=== PATIENT | female | born 1965 | race Caucasian/White ===

== ENCOUNTER 2016-08-30 18:41 | Emergency (ER) | payer BC ==
[2016-08-30 21:23] VITALS: BP 137/90
[2016-08-30] MEDS ORDERED: Amoxicillin/Clavulanate TAB* 875 MG PO ONE (21:36)
--- NOTE | 2016-08-30 21:37 | UC ---
Throat Pain/Nasal David HPI - HPI Summary HPI Summary: patient has had 2 weeks of sinus and cough, the past few days increas right sided sinus pressure and swelling under her eye, starting to make her teeth hurt. - History of Current Complaint Chief Complaint: UCGeneralIllness Stated Complaint: SINUS CONGESTION Time Seen by Provider: 08/30/16 21:20 Hx Obtained From: Patient Hx Last Menstrual Period: May 2016 ?: No Onset/Duration: Gradual Onset, Lasting Weeks Severity: Severe Pain Intensity: 8 Pain Scale Used: 0-10 Numeric Cough: Nonproductive Associated Signs & Symptoms: Positive: Sinus Discomfort, Nasal Discharge - Epiglottits Risk Factors Epiglottis Risk Factors: Negative - Allergies/Home Medications Allergies/Adverse Reactions: Allergies Allergy/AdvReac Type Severity Reaction Status Date / Time No Known Allergies Allergy Verified 08/30/16 21:02 Home Medications: Home Medications Amphetamine-Dextroamphetamine [Adderall 30 mg-] 1 tab PO DAILY 08/30/16 [ History Confirmed 08/30/16] Dextromethorphan-Phenylephrine [Vicks Dayquil Cold & Flu] 1 cap PO Q6H PRN 08/30 [History Confirmed 08/30/16] PMH/Surg Hx/FS Hx/Imm Hx Previously Healthy: Yes Endocrine History Of: Denies: Diabetes Cardiovascular History Of: Denies: Cardiac Disorders Respiratory History Of: Denies: Asthma - Surgical History Surgical History: Yes Surgery Procedure, Year, and Place: x2. right leg surgery 2007 - Family History Known Family History: Negative: Hypertension - Social History Alcohol Use: Occasionally Substance Use Type: None Smoking Status (MU): Never Smoked Tobacco - Immunization History Most Recent Tetanus Shot: DTAP 12/11/14 Review of Systems Constitutional: Fatigue Skin: Negative ENT: Ear Ache, Nasal Discharge Respiratory: Cough Cardiovascular: Negative Gastrointestinal: Negative Genitourinary: Negative Motor: Negative Neurovascular: Negative Musculoskeletal: Negative Neurological: Headache Psychological: Negative All Other Systems Reviewed And Are Negative: Yes Physical Exam Triage Information Reviewed: Yes Appearance: Well-Nourished, Ill-Appearing, Pain Distress Vital Signs: Initial Vital Signs Temp 99.0 F 08/30/16 21:06 Pulse 94 08/30/16 21:06 Resp 16 08/30/16 21:06 BP 137/90 08/30/16 21:06 Pulse Ox 100 08/30/16 21:06 Vital Signs Reviewed: Yes Eye Exam: Normal Eyes: Positive: Other: - lower right eyelid swollen ENT Exam: Normal ENT: Positive: Normal ENT inspection, Pharynx normal, Nasal congestion, Nasal drainage, TMs normal Dental Exam: Normal Neck exam: Normal Neck: Positive: Supple, Nontender, Enlarged Nodes @ - behind right ear Respiratory Exam: Normal Respiratory: Positive: Chest non-tender, Normal breath sounds, Wheezing, Inspiration Cardiovascular Exam: Normal Cardiovascular: Positive: RRR, No Murmur, Pulses Normal Abdominal Exam: Normal Abdomen Description: Positive: Nontender, No Organomegaly, Soft Bowel Sounds: Positive: Present Musculoskeletal Exam: Normal Musculoskeletal: Positive: Strength Intact, ROM Intact, No Edema Neurological Exam: Normal Neurological: Positive: Alert, Muscle Tone Normal Psychological Exam: Normal Skin Exam: Normal Throat Pain/Nasal Course/Dx - Course Course Of Treatment: hx obtained, exam performed, meds reviewed discussed symptomatic relief, medication prescribed. - Differential Dx/Diagnosis Differential Diagnosis/HQI/PQRI: Influenza, Otitis Media, Pharyngitis, Sinusitis , Tonsillitis, URI Provider Diagnoses: sinusitis Discharge - Discharge Plan Condition: Stable Disposition: HOME Patient Education Materials: Sinusitis (ED) Additional Instructions: take the medication as prescribed. Increase your fluid intake and get plenty of rest. follow up with any worsening symptoms.
== END 2016-08-30 21:50 | disposition home or self-care (01) ==
LOC: UCCORT 18:41
DX: J32.9 Chronic sinusitis, unspecified (principal)
CPT/HCPCS: 99212; A9270-GY; G0463

== ENCOUNTER 2017-05-10 19:11 | Emergency (ER) | payer BC ==
[2017-05-10] MEDS ORDERED: Tetan/Diph/Pertus SYR(Tdap)* 0.5 ML SYR(BOOSTRIX) use SYR IM ONE (19:33)
[2017-05-10] MEDS ORDERED: Acetaminop/Codeine 30 MG TAB* 1 TAB (300 MG/30 MG) PO ONE (19:33)
[2017-05-10 19:41] VITALS: BP 156/97
[2017-05-10] MEDS ORDERED: Lidocaine 1% MPF* 2 ML VIAL INJ ONE ×4 (19:59→20:17)
--- NOTE | 2017-05-10 20:23 | RAD ---
Indication: Left foot pain. 3 views of left foot demonstrates no fracture. No other bone or joint abnormality is noted. IMPRESSION: No fracture of left foot is noted.
[2017-05-10] MEDS ORDERED: Sulfamethox/Trimethoprim DS 800/160* TAB PO ONE (20:34)
--- NOTE | 2017-05-11 21:39 | UC ---
Skin Complaint HPI - HPI Summary HPI Summary: 51 year old female presents with left big toe pain. - History of Current Complaint Chief Complaint: UCLowerExtremity Time Seen by Provider: 05/10/17 19:17 Stated Complaint: LEFT BIG TOE INJURY Hx Obtained From: Patient Hx Last Menstrual Period: 11/30/14 Onset/Duration: Sudden Onset Skin Exposure Onset/Duration: Hours Ago Onset Severity: Moderate Pain Intensity: 5 Pain Scale Used: 0-10 Numeric - 8 - Allergy/Home Medications Allergies/Adverse Reactions: Allergies Allergy/AdvReac Type Severity Reaction Status Date / Time No Known Allergies Allergy Verified 05/10/17 19:41 Review of Systems Constitutional: Negative Skin: Other - left big toe nail avulsion Eyes: Negative ENT: Negative Respiratory: Negative Cardiovascular: Negative Gastrointestinal: Negative Genitourinary: Negative Motor: Negative Neurovascular: Negative Musculoskeletal: Negative Neurological: Negative Psychological: Negative All Other Systems Reviewed And Are Negative: Yes PMH/Surg Hx/FS Hx/Imm Hx - Surgical History Surgical History: Yes Surgery Procedure, Year, and Place: --2009. right leg surgery 2007. C -SECT--2013 - Family History Known Family History: Negative: Hypertension - Social History Alcohol Use: Occasionally Substance Use Type: Excessive Caffeine Smoking Status (MU): Never Smoked Tobacco - Immunization History Most Recent Tetanus Shot: DTAP 12/11/14 Physical Exam Triage Information Reviewed: Yes Vital Signs: Initial Vital Signs Temp 36.7 C 05/10/17 19:35 Pulse 93 05/10/17 19:35 Resp 14 05/10/17 19:35 BP 156/97 05/10/17 19:35 Vital Signs Reviewed: Yes Eye Exam: Normal ENT Exam: Normal Dental Exam: Normal Neck exam: Normal Neck: Positive: 1 Respiratory Exam: Normal Cardiovascular Exam: Normal Abdominal Exam: Normal Musculoskeletal Exam: Normal Neurological Exam: Normal Psychological Exam: Normal Skin: Positive: Other - left big toe nail avulsion Diagnostics - Radiology No standard instances Xray Interpretation: No Acute Changes Radiology Interpretation Completed By: ED Physician, Radiologist Course/Dx - Course Course Of Treatment: left big nail avulsion remoaval with vicryl one 4.0 placed in nail bad. wound <2.5 cm - Diagnoses Provider Diagnoses: left big toe nail avulsion Discharge - Discharge Plan Condition: Stable Disposition: HOME Prescriptions: Acetaminop/Codeine 30 MG TAB* [Tylenol/Codeine 30 MG TAB*] 1 tab PO Q8H PRN #9 tab MDD 3 PRN Reason: Pain Sulfamethox/Trimethoprim DS* [Bactrim DS 800/160 TAB*] 1 tab PO BID #20 tab Patient Education Materials: Nail Avulsion (ED), Nail Removal (ED) Referrals: Suhail Chapman MD [Primary Care Provider] - Damaso TORRES,Davidson Tipton [Doctor of Podiatric Medicine] - Additional Instructions: WOUND CARE JOSE
== END 2017-05-10 21:14 | disposition home or self-care (01) ==
LOC: UCCORT 19:11
DX: S91.202A Unspecified open wound of left great toe with damage to nail, initial encounter (principal); X58.XXXA Exposure to other specified factors, initial encounter; F15.929 Other stimulant use, unspecified with intoxication, unspecified
CPT/HCPCS: 11730; 90471; 90715; 99212; A9270-GY; G0463

== ENCOUNTER 2017-09-20 10:12 | Emergency (ER) | payer BC ==
[2017-09-20 10:38] VITALS: BP 135/85
--- NOTE | 2017-09-20 10:50 | UC ---
Throat Pain/Nasal David HPI - HPI Summary HPI Summary: SORE THROAT X 1 WEEK + NASAL CONGESTION , COUGH, FEVER, CHILLS , BODY ACHES SWOLLEN NECK GLANDS LEFT MORE THAN RIGHT - History of Current Complaint Chief Complaint: UCRespiratory Stated Complaint: ST/SWOLLEN THROAT GLANDS Time Seen by Provider: 09/20/17 10:31 Hx Obtained From: Patient Hx Last Menstrual Period: 11/30/14 Onset/Duration: Gradual Onset, Lasting Days - 7, Still Present Severity: Moderate Pain Intensity: 4 Cough: Nonproductive Associated Signs & Symptoms: Positive: Nasal Discharge, Fever. Negative: Sinus Discomfort - Allergies/Home Medications Allergies/Adverse Reactions: Allergies Allergy/AdvReac Type Severity Reaction Status Date / Time No Known Allergies Allergy Verified 09/20/17 10:27 Home Medications: Home Medications Dextroamphetamine/Amphetamine [Adderall Xr 20 mg Capsule] 40 mg PO DAILY [History Confirmed 09/20/17] PMH/Surg Hx/FS Hx/Imm Hx Psychological History: Anxiety, Depression - Surgical History Surgical History: Yes Surgery Procedure, Year, and Place: --2009. right leg surgery 2007. C -SECT--2013. TONSILLECTOMY - Family History Known Family History: Negative: Hypertension - Social History Alcohol Use: Occasionally Substance Use Type: Excessive Caffeine Smoking Status (MU): Never Smoked Tobacco - Immunization History Most Recent Tetanus Shot: DTAP 12/11/14 Review of Systems Constitutional: Fever, Chills, Fatigue Skin: Negative Eyes: Negative ENT: Sore Throat, Nasal Discharge Respiratory: Cough Cardiovascular: Negative Gastrointestinal: Negative Is Patient Immunocompromised?: No All Other Systems Reviewed And Are Negative: Yes Physical Exam Triage Information Reviewed: Yes Appearance: Well-Appearing, No Pain Distress, Well-Nourished Vital Signs: Initial Vital Signs Temp 98.4 F 09/20/17 10:30 Pulse 104 09/20/17 10:30 Resp 18 09/20/17 10:30 BP 135/85 09/20/17 10:30 Pulse Ox 99 09/20/17 10:30 Vital Signs Reviewed: Yes Eyes: Positive: Conjunctiva Clear ENT: Positive: Normal ENT inspection, Hearing grossly normal, Pharyngeal erythema, Nasal drainage, TMs normal Neck: Positive: Supple, Tenderness @, Enlarged Nodes @ Respiratory: Positive: Chest non-tender, Lungs clear, Normal breath sounds, No respiratory distress Cardiovascular: Positive: Tachycardia Abdominal Exam: Normal Abdomen Description: Positive: Nontender, No Organomegaly, Soft. Negative: CVA Tenderness (R), CVA Tenderness (L), Distended, Guarding Bowel Sounds: Positive: Present Skin Exam: Normal Throat Pain/Nasal Course/Dx - Differential Dx/Diagnosis Provider Diagnoses: STREP PHARYNGITIS Discharge - Discharge Plan Condition: Stable Disposition: HOME Prescriptions: Amoxicillin PO (*) [Amoxicillin 875 MG (*)] 875 mg PO BID #20 tab Patient Education Materials: Strep Throat (ED) Referrals: Suhail Chapman MD [Primary Care Provider] - If Needed
== END 2017-09-20 11:06 | disposition home or self-care (01) ==
LOC: UCCORT 10:12
DX: J02.0 Streptococcal pharyngitis (principal); F41.8 Other specified anxiety disorders
CPT/HCPCS: 87651; 99212; G0463